=== PATIENT | female | born 1965 | race Caucasian/White ===

== ENCOUNTER → 2016-10-22 | Outpatient (CLI) | payer OTHER ==
--- NOTE | 2016-10-25 15:23 | BD ---
EXAMINATION TYPE: MG DEXA axial skeleton. DATE OF EXAM: 10/22/2016 3:22 PM COMPARISON: NONE CLINICAL HISTORY: 51-year-old female osteoarthritis, postmenopausal screening Height: 62 Weight: 183.3 FRAX RISK QUESTIONS: Alcohol (3 or more units per day): no Family History (Parent hip fracture): no Glucocorticoids (More than 3mos): no (Ex: prednisone, prednisolone, methylprednisolone, dexamethasone, and hydrocortisone). History of Fracture in Adulthood: no Secondary Osteoporosis: 1. Type 1 Diabetes: no 2. Hyperthyroidism: no 3. Menopause before 45: yes 4. Malnutrition: no 5. Chronic liver disease: no Rheumatoid Arthritis: no Current Tobacco Use: yes RISK FACTORS HISTORY OF: Hip Fracture (Right/Left): no Spine Fracture: no History of Wrist Fracture: no Surgery to Spine/Hip(right/left)/Wrist (right/left): l-spine When: 2007 Family History of Osteoporosis: no Active: no Diet low in dairy products/other sources of calcium: yes Postmenopausal woman: hysterectomy age 36 Take estrogen and/or progesterone medications: not currently How long: took since age 36 just stopped in aug 2016 Lost more than 2 inches in height since high school: yes Frequent falls: no Poor Health: no Adrenal Insufficiency: no MEDICATIONS: norco, losartan, acid reflux, loratadine Additional History: EXAM MEASUREMENTS: Bone mineral densitometry was performed using the Vouchr System. Bone mineral density about the R hip (g/cm2): 0.866 Bone mineral density about the L hip (g/cm2): 0.896 T Score values are as follows: -----R Neck: -1.2 -----L Neck: -1.0 -----R Intertrochanter: -0.8 -----L Intertrochanter: 0.3 Bone mineral density has: baseline here/prior [facility] IMPRESSION: Osteopenia as indicated by T score values in the right hip. There is slightly increased risk for frac ture and therapy can be considered. Rescreen in 2-5 years. NOTE: T-SCORE=SD OF THE YOUNG ADULT MEAN.
--- NOTE | 2016-10-26 08:37 | MM ---
Reason for exam: screening (asymptomatic). Last mammogram was performed 1 year and 1 month ago. History: Patient is postmenopausal. Benign MG stereo VAD BX RT of the right breast, October 14, 2015. Took hormonal contraceptives for 10 years. Physical Findings: A clinical breast exam by your physician is recommended on an annual basis and results should be correlated with mammographic findings. MG Screening Mammo w CAD Bilateral CC and MLO view(s) were taken. Prior study comparison: September 26, 2015, right breast MG 3d work up w/cad RT. The breast tissue is heterogeneously dense. This may lower the sensitivity of mammography. Previous mammotome biopsy within the right breast. No significant changes when compared with prior studies. ASSESSMENT: Benign, BI-RAD 2 RECOMMENDATION: Routine screening mammogram of both breasts in 1 year.
== END | disposition home or self-care (01) ==
LOC: RADMAMWWP 14:57
PROVIDERS: ATTEND Family Medicine
DX: Z12.31 Encounter for screening mammogram for malignant neoplasm of breast (principal); M85.88 Other specified disorders of bone density and structure, other site; M19.90 Unspecified osteoarthritis, unspecified site
CPT/HCPCS: 77080; G0202

== ENCOUNTER → 2017-11-01 | Outpatient (CLI) | payer MEDICARE, OTHER ==
--- NOTE | 2017-11-02 11:52 | MM ---
Reason for exam: screening (asymptomatic). Last mammogram was performed 1 year ago. History: Patient is postmenopausal. Benign MG stereo VAD BX RT of the right breast, October 14, 2015. Took hormonal contraceptives for 10 years. Physical Findings: A clinical breast exam by your physician is recommended on an annual basis and results should be correlated with mammographic findings. MG 3D Screening Mammo W/Cad Bilateral CC and MLO view(s) were taken. Prior study comparison: October 22, 2016, bilateral MG screening mammo w CAD. September 26, 2015, right breast MG 3d work up w/cad RT. The breast tissue is heterogeneously dense. This may lower the sensitivity of mammography. No suspicious abnormality. Right biopsy marker noted. No significant changes when compared with prior studies. ASSESSMENT: Negative, BI-RAD 1 RECOMMENDATION: Routine screening mammogram of both breasts in 1 year.
== END | disposition home or self-care (01) ==
LOC: RADMAMWWP 06:47
PROVIDERS: ATTEND Family Medicine
DX: Z12.31 Encounter for screening mammogram for malignant neoplasm of breast (principal)
CPT/HCPCS: 77063; 77067

== ENCOUNTER → 2018-04-03 | Outpatient (CLI) | payer MEDICARE, OTHER ==
--- NOTE | 2018-04-03 21:25 | CT ---
EXAMINATION TYPE: CT cervical spine wo con DATE OF EXAM: 04/03/2018 COMPARISON: NONE HISTORY: Neck pain x 6 months with tingling and numbness to right side of neck into shoulder. Cervica l radiculopathy per order. CT DLP: 368 mGycm. Automated Exposure Control for Dose Reduction was Utilized. TECHNIQUE: CT scan of the cervical spine is obtained without contrast, axial images are obtained, sa gittal and coronal reformatted images are also reviewed. FINDINGS: Cervical spine is visualized in its entirety from C1 through upper thoracic levels, demonst rates reversal of normal cervical curvature without evidence of acute fracture or dislocation. Preve rtebral soft tissue appears within normal limits. The C1-C2 articulation is within normal limits on the coronal images. Vertebral body heights are maintained. There is mild disc space narrowing with mild anterior spurring C4-C5 level. There is mild to moderate disc space narrowing and anterior spurring at C5-C6 and C6-C7 levels. Posterior spur disc complexes effacing the anterior thecal sac at these levels on sagittal i mages. Nonspecific sclerotic focus C7 vertebra favors benign bone island coronal image 17. Review of axial images at C2-C3 level is felt to appear within normal limits. Axial images at C3-C4 level show right-sided uncovertebral facet degenerative change and marginal spu rring causing asymmetric moderate right-sided neural foraminal narrowing. Axial images at C4-C5 level show posterior spur disc complex effacing the anterior thecal sac and cau sing asymmetric moderate left-sided neural foraminal narrowing. Axial images at C5-C6 level show posterior spur disc complex effacing anterior thecal sac and causing mild bilateral neural foraminal narrowing. Axial images at C6-C7 level a broad-based posterior disc protrusion effacing anterior thecal sac, alfred ateral neural foramina are felt patent at this level. Axial images at C7-T1 level are felt within normal limits. Thyroid gland is heterogeneous and enlarged in size, underlying goiter is suspected. Correlate clinic ally. There is moderate emphysematous change visualized lung apices. IMPRESSION: Reversal of normal cervical curvature with multilevel degenerative changes most prominent in the mid to lower cervical levels as detailed above. Underlying moderate emphysematous change and thyroid goiter suspected. Correlate clinically.
== END ==
LOC: RADCTMAIN 17:45
PROVIDERS: ATTEND Family Medicine
DX: M99.71 Connective tissue and disc stenosis of intervertebral foramina of cervical region (principal); M50.123 Cervical disc disorder at C6-C7 level with radiculopathy; M47.22 Other spondylosis with radiculopathy, cervical region
CPT/HCPCS: 72125

== ENCOUNTER → 2018-11-03 | Outpatient (CLI) | payer MEDICARE, OTHER ==
--- NOTE | 2018-11-07 13:11 | MM ---
Reason for exam: screening (asymptomatic). Last mammogram was performed 1 year ago. History: Patient is postmenopausal. Benign MG stereo VAD BX RT of the right breast, October 14, 2015. Took hormonal contraceptives for 10 years. Physical Findings: A clinical breast exam by your physician is recommended on an annual basis and results should be correlated with mammographic findings. MG Screening Mammo w CAD Bilateral CC and MLO view(s) were taken. Prior study comparison: November 01, 2017, bilateral MG 3d screening mammo w/cad. October 22, 2016, bilateral MG screening mammo w CAD. The breast tissue is heterogeneously dense. This may lower the sensitivity of mammography. Previous mammotome biopsy in the right breast. No significant changes when compared with prior studies. ASSESSMENT: Negative, BI-RAD 1 RECOMMENDATION: Routine screening mammogram of both breasts in 1 year.
== END | disposition home or self-care (01) ==
LOC: RADMAMWWP 14:30
PROVIDERS: ATTEND Family Medicine
DX: Z12.31 Encounter for screening mammogram for malignant neoplasm of breast (principal)
CPT/HCPCS: 77067

== ENCOUNTER → 2019-08-29 | Outpatient (CLI) | payer MEDICARE, OTHER ==
--- NOTE | 2019-08-29 09:52 | XR ---
Bilateral knees HISTORY: Bilateral knee pain 6 views of each knee submitted There is marginal spurring, remodeling in the medial compartments with subchondral sclerosis and join t space loss. Marginal spurring joint space loss also present to lesser extent at the patellofemoral joint and lateral compartments. No evident joint effusion. IMPRESSION: Osteoarthritis.
== END | disposition home or self-care (01) ==
LOC: RADXRMAIN 08:27
PROVIDERS: ATTEND Family Medicine
DX: M17.0 Bilateral primary osteoarthritis of knee (principal)

== ENCOUNTER → 2020-01-24 | Outpatient (CLI) | payer MEDICARE, OTHER ==
--- NOTE | 2020-01-28 08:02 | MM ---
Reason for exam: screening (asymptomatic). Last mammogram was performed 1 year and 3 months ago. History: Patient is postmenopausal. Benign MG stereo VAD BX RT of the right breast, October 14, 2015. Took hormonal contraceptives for 10 years. Taking estrogen for 18 years. Physical Findings: A clinical breast exam by your physician is recommended on an annual basis and results should be correlated with mammographic findings. MG 3D Screening Mammo W/Cad Bilateral CC and MLO view(s) were taken. Prior study comparison: November 03, 2018, bilateral MG screening mammo w CAD. November 01, 2017, bilateral MG 3d screening mammo w/cad. The breast tissue is heterogeneously dense. This may lower the sensitivity of mammography. Previous mammotome biopsy in the right breast. Focal asymmetry left upper outer quadant anterior, changed from priors. No significant new findings when compared with previous films. These results were verbally communicated with the patient and result sheet given to the patient on 01/24/20. ASSESSMENT: Incomplete: need additional imaging evaluation, BI-RAD 0 RECOMMENDATION: Special view mammogram of the left breast. If lesion persists on supplemental views, image directed ultrasound is recommended. [facility] will attempt to contact patient to return for supplemental views and ultrasound if indicated.
== END | disposition home or self-care (01) ==
LOC: RADMAMWWP 13:54
PROVIDERS: ATTEND Family Medicine
DX: Z12.31 Encounter for screening mammogram for malignant neoplasm of breast (principal)
CPT/HCPCS: 77063; 77067

== ENCOUNTER → 2020-11-18 | Outpatient (CLI) | payer MEDICARE, OTHER ==
--- NOTE | 2020-11-18 11:20 | XR ---
EXAMINATION TYPE: XR chest 2V DATE OF EXAM: 11/18/2020 COMPARISON: Chest x-ray 03/25/2010 HISTORY: Shortness of breath TECHNIQUE: Frontal and lateral views of the chest are obtained. FINDINGS: Patchy densities present within the bilateral lungs left greater than right. No evident pn eumothorax or pleural effusion. Cardiac mediastinal silhouette is within normal limits. Bone minerali zation is stable. There is a spinal curvature. IMPRESSION: Findings likely represent sequela due to patient's history of Covid pneumonia
== END | disposition home or self-care (01) ==
LOC: RADXRMAIN 07:58
PROVIDERS: ATTEND Family Medicine
DX: R06.02 Shortness of breath (principal); Z86.16 Personal history of COVID-19
CPT/HCPCS: 71046

== ENCOUNTER → 2021-09-16 | Outpatient (CLI) | payer MEDICARE, OTHER ==
[2021-09-16 10:47] LABS: HCT 41.5 % (34.0-46.0); HGB 13.5 gm/dL (11.4-16.0); MCH 32.1 pg (25.0-35.0); MCHC 32.7 g/dL (31.0-37.0); MCV 98.1 fL (80.0-100.0); Mean Platelet Volume 7.7; Platelet Count 395 k/uL (150-450); RBC 4.23 m/uL (3.80-5.40); RDW 13.2 % (11.5-15.5); WBC 12.7 k/uL (3.8-10.6)
[2021-09-16 11:07] LABS: African American GFR (CKD) 75 (>60 ml/min/1.73 sqM); Anion Gap 6 mmol/L; Blood Urea Nitrogen 22 mg/dL (7-17); Calcium 9.7 mg/dL (8.4-10.2); Carbon Dioxide 29 mmol/L (22-30); Chloride 102 mmol/L (98-107); Glucose 87 mg/dL (74-99); Non-African American GFR(CKD) 65 (>60 ml/min/1.73 sqM); Potassium 4.1 mmol/L (3.5-5.1); Sodium 137 mmol/L (137-145)
[2021-09-16 11:23] LABS: T4, Free (Free Thyroxine) 1.04 ng/dL (0.78-2.19)
[2021-09-16 11:31] LABS: Appearance,Urine Cloudy (Clear); Bilirubin,Urine Negative (Negative); Blood,Urine Negative (Negative); Color,Urine Yellow; Glucose,Urine (UA) Negative (Negative); Ketones,Urine Negative (Negative); Leukocyte Esterase,Urine Negative (Negative); Mucus,Urine Rare /hpf; Nitrite,Urine Negative (Negative); PH, Urine 5.5 (5.0-8.0); Protein,Urine Negative (Negative); RBC,Urine 1 /hpf (0-5); Specific Gravity,Urine 1.018 (1.001-1.035); Squamous Epithelial Cell,Urine 7 /hpf (0-4); Urobilinogen,Urine <2.0 mg/dL (<2.0); WBC,Urine 1 /hpf (0-5)
--- NOTE | 2021-09-16 12:21 | CT ---
EXAMINATION TYPE: CT pelvis w con DATE OF EXAM: 09/16/2021 INDICATION: post menopausal bleeding CT DLP: 1532.6 mGy.cm Automated Exposure Control for Dose Reduction was Utilized. TECHNIQUE AND CONTRAST: CT scan of the lower abdomen and pelvis is performed with IV Contrast, patient injected with 100 mL o f Isovue 300. COMPARISON: No previous CT scan is available for comparison. FINDINGS: Previous hysterectomy. Multiple adhesions are seen between the vagina vault, adjacent sigmoid colon, both adnexa and urinary bladder. Tiny air bubble is seen within the slightly thickened superior wall of the urinary bladder with tiny tract seen superiorly into the adjacent sigmoid colon. Another possi ble tract is seen between the sigmoid colon and the left side of the vaginal vault. The vaginal vault contains air on the left side. This may suggest a fistula between the urinary bladder and the sigmoid colon, and possibly the vagina l vault. Right ovarian/adnexal cyst measuring up to 5.1 cm without definite septation or gross solid component however further ultrasound assessment is advised. No left adnexal mass. Previous cholecystectomy. Unremarkable visualized portion of the liver, spleen, pancreas, adrenals an d left kidney. 16 mm cyst is seen within the midpole of the right kidney with suspected thin septatio n within. Recommend correlation with ultrasound results. Unremarkable right kidney otherwise. Unremar kable visualized portion of the stomach, duodenum and small bowel. Scattered colonic diverticulosis. Normal appendix. Unremarkable abdominal aorta and IVC. Minimal cristian rial atherosclerotic calcifications. No sizable ascites. Fat-containing umbilical hernia. L4 down to S1 fixation using rods and multiple screws. Degenerative changes of the sacroiliac joints. Grade 1-2 anterolisthesis of L5 over S1 with severely degenerated L5-S1 disc. IMPRESSION: Findings are suggestive of adhesions/fistulous communication between the sigmoid colon, the urinary b ladder and possibly the vagina vault on the left side as described above. Recommend clinical correlat ion, correlation with urinalysis results and surgical consultation. Other incidental findings as desc ribed above.
[2021-09-17 02:18] LABS: Follicle Stimulating Hormone 31.1 mIU/mL; Luteinizing Hormone 37.2 mIU/mL
[2021-09-17 03:00] LABS: Testosterone <2.50 ng/mL (7.00-45.62)
== END | disposition home or self-care (01) ==
LOC: RADCTMAIN 10:06
PROVIDERS: ATTEND Family Medicine
DX: K57.30 Diverticulosis of large intestine without perforation or abscess without bleeding (principal); K42.9 Umbilical hernia without obstruction or gangrene; N95.0 Postmenopausal bleeding
CPT/HCPCS: 84439; 80048; 82626; 83001; 83002; 82672; 84443; 85027; 81001; 84146; 84403; 84144; 83036; 72193; 36415; Q9967

== ENCOUNTER → 2021-12-21 | Outpatient (CLI) | payer MEDICARE, OTHER ==
--- NOTE | 2021-12-21 12:43 | US ---
EXAMINATION TYPE: US thyroid st tissue head/neck DATE OF EXAM: 12/21/2021 COMPARISON: NONE CLINICAL HISTORY: E05.90 THYROTOXICOSIS, UNSP WITHOUT THYROTOXIC CRISIS OR. Abnormal labs GLAND SIZE: Right Lobe: 5.7 x 2.3 x 2.4 cm Overall Parenchyma: heterogenous Left Lobe: 5.9 x 2.1 x 2.4 cm Overall Parenchyma: heterogeneous Isthmus Thickness: 0.9 cm NODULES RIGHT: # of nodules measured on right: 2 1. 0.9 X 0.7 x 0.7 cm, upper lateral, solid or almost completely solid, hypoechoic nodule, which is wider than tall, with smooth margins, without echogenic foci. Prior size: No prior 2. 0.7 X 0.4 x 0.7 cm, mid, mixed cystic and solid, hypoechoic nodule, which is wider than tall, wi th smooth margins, without echogenic foci. Prior size: No prior LEFT: # of nodules measured on left: 1 1. 0.6 X 0.5 x 0.6 cm, upper , solid or almost completely solid, hypoechoic nodule, which is wider than tall, with smooth margins, without echogenic foci. Prior size: No prior ISTHMUS: # of nodules measured in the isthmus: 0 Bilateral neck scanned, no evidence of lymphadenopathy. IMPRESSION: Enlarged, heterogeneous thyroid bilaterally with nonspecific sub-centimeter nodules bilaterally.
[2021-12-21 18:26] LABS: Prolactin 12.7 ng/mL (2.800-29.200); T4, Free (Free Thyroxine) 1.28 ng/dL (0.800-1.800)
[2021-12-22 09:31] LABS: ACTH 8.28 pg/mL (0.00-45.99)
== END | disposition home or self-care (01) ==
LOC: RADUSWWP 10:46
PROVIDERS: ATTEND Internal Medicine Endocrinology, Diabetes & Metabolism
DX: E04.1 Nontoxic single thyroid nodule (principal); R53.83 Other fatigue; E05.90 Thyrotoxicosis, unspecified without thyrotoxic crisis or storm
CPT/HCPCS: 76536; 82024; 82533; 82607; 84146; 84439; 84443; 84445; 84480

== ENCOUNTER → 2021-12-23 | Outpatient (CLI) | payer MEDICARE, OTHER | END | disposition home or self-care (01) | LOC: RADNMMAIN 10:42 | PROVIDERS: ATTEND Internal Medicine Endocrinology, Diabetes & Metabolism | DX: Z53.9 Procedure and treatment not carried out, unspecified reason (principal) ==

== ENCOUNTER → 2022-05-31 | Outpatient (CLI) | payer MEDICARE, OTHER ==
--- NOTE | 2022-06-01 20:11 | MM ---
Reason for Exam: Screening (asymptomatic). Last mammogram was performed 2 year(s) and 4 month(s) ago. Patient History: Menarche at age 9. First Full-Term at age 16. Right ovary removed at age 36. Hysterectomy at age 36. Postmenopausal. Currently using Estrogen, beginning at age 36 for 18 years. Patient used Hormonal Contraceptives for 10 years. 10/14/2015, Benign Core Biopsy on the right side. Risk Values: Diana 5 year model risk: 1.3%. NCI Lifetime model risk: 7.0%. Prior Study Comparison: 04/13/2006 Screening Mammogram, [facility]. 09/23/2015 Bilateral Screening Mammogram, [facility]. 09/26/2015 Right Diagnostic Mammogram, [facility]. 10/22/2016 Bilateral Screening Mammogram, [facility]. 11/01/2017 Bilateral Screening Mammogram, [facility] 11/03/2018 Bilateral Screening Mammogram, [facility]. 01/24/2020 Bilateral Screening Mammogram, [facility]. 02/06/2020 Left Diagnostic Mammogram, [facility]. Tissue Density: The breast tissue is heterogeneously dense. This may lower the sensitivity of mammography. Findings: Analyzed By CAD. Microclip lateral right breast from prior biopsy. Asymmetric density central left MLO view and a middle depth appears more defined but disperses on 3-D images. No significant change from prior exams. Overall Assessment: Benign, BI-RAD 2 Management: Screening Mammogram of both breasts in 1 year. 1. Patient should continue monthly self breast exams. 2. A clinical breast exam by your physician is recommended on an annual basis. 3. This exam should not preclude additional follow-up of suspicious palpable abnormalities. Electronically signed and approved by: Sandy Ha M.D. Radiologist
== END | disposition home or self-care (01) ==
LOC: RADMAMWWP 15:58
PROVIDERS: ATTEND Family Medicine
DX: Z12.31 Encounter for screening mammogram for malignant neoplasm of breast (principal); Z78.0 Asymptomatic menopausal state; Z90.721 Acquired absence of ovaries, unilateral
CPT/HCPCS: 77063; 77067

== ENCOUNTER → 2023-01-26 | Outpatient (CLI) | payer MEDICARE, OTHER ==
[2023-01-26 16:09] LABS: Potassium 4.1 mmol/L (3.5-5.5)
[2023-01-26 16:11] LABS: Basophils # (A) 0.12 X 10*3/uL (0.00-0.10); Eosinophils # (A) 0.58 X 10*3/uL (0.04-0.35); Eosinophils % (A) 4.9 %; HGB 13.8 d/dL (12.0-15.0); Lymphocytes # (A) 3.33 X 10*3/uL (0.90-5.00); Lymphocytes % (A) 28.3 %; MCH 30.9 pg (27.0-32.0); MCHC 32.1 d/dL (32.0-37.0); MCV 96.2 FL (80.0-97.0); Mean Platelet Volume 11.1 FL (9.5-12.2); Monocytes # (A) 0.83 X 10*3/uL (0.20-1.00); Monocytes % (A) 7.1 %; NRBC Per 100 WBC 0 X 10*3/uL (0.00-0.01); Neutrophils # (A) 6.86 X 10*3/uL (1.80-7.70); Neutrophils % (A) 58.4 %; Platelet Count 387 X 10*3/uL (140-440); RBC 4.47 X 10*6/uL (4.10-5.20); RDW 13.2 % (11.5-14.5); WBC 11.75 X 10*3/uL (4.50-10.00)
== END | disposition home or self-care (01) ==
LOC: LABPAT 09:41
PROVIDERS: ATTEND Orthopaedic Surgery Hand Surgery
DX: Z01.812 Encounter for preprocedural laboratory examination (principal); M18.9 Osteoarthritis of first carpometacarpal joint, unspecified; I21.3 ST elevation (STEMI) myocardial infarction of unspecified site; R94.31 Abnormal electrocardiogram [ECG] [EKG]
CPT/HCPCS: 36415; 80051; 85025; 93005

== ENCOUNTER 2023-02-09 08:24 | Day surgery (SDC) | payer MEDICARE, OTHER ==
--- NOTE | 2023-02-08 10:20 | P.HPOR ---
History of Present Illness H&P Date: 02/08/23 Subjective: This is a 57 year old female that presents today for initial evaluation regarding a several year history of worsening bilateral base of thumb pain. She states the left is about equal to the right. She is right-hand dominant. She tried anti-inflammatories and bracing and noticed that the braces actually made her symptoms worse. Anti-inflammatories are no longer helping her symptoms. She denies any injury or inciting event. She denies any numbness or tingling. Physical Examination: LUE: AIN/PIN/Radial/Ulnar/Median motor intact. Radial/Ulnar/Median SILT. 2+/4 Radial/Ulnar pulses palpated. 5/5 APB, 5/5 FDI. Negative Finkelsteins, Positive CMC grind, negative Durkan's compression. RUE: AIN/PIN/Radial/Ulnar/Median motor intact. Radial/Ulnar/Median SILT. 2+/4 Radial/Ulnar pulses palpated. 5/5 APB, 5/5 FDI. Negative Finkelsteins, Positive CMC grind, negative Durkan's compression. Imaging: X-Rays of the left hand 3V reviewed from prior office visit on 11/17/2022 demonstrates severe arthritic changes at the thumb CMC joint. X-Rays of the right hand 3V reviewed from prior office visit on 11/17/2022 demonstrates moderate arthritic changes at the thumb CMC joint. Impression: 1.) Left thumb CMC arthritis 2.) Right thumb CMC arthritis Plan: Diagnosis and treatment options were discussed with the patient. She has progres sively worsening symptoms that are interfering with her daily activities and is no longer responding to anti-inflammatories or bracing and would like to pursue surgical intervention in the form of a left thumb basilar joint arthroplasty. Risks and benefits of surgery including bleeding, infection, damage to surrounding tissue, need for further surgery, residual numbness were discussed and the patient wished to go forward with surgery. The patient was agreeable with this plan. CC: Valentin Oneill DO Orthopedic Hand/Upper Extremity Surgeon Past Medical History Past Medical History: GERD/Reflux, Hypertension, Thyroid Disorder Additional Past Medical History / Comment(s): lower back pain, no current meds for thyroid History of Any Multi-Drug Resistant Organisms: None Reported Past Surgical History: Back Surgery, Bowel Resection, Cholecystectomy, Hysterectomy, Orthopedic Surgery Additional Past Surgical History / Comment(s): ARTHROSCOPIC DAIANA. KNEES, bowel resections with lysis of adehsions at [place] Past Anesthesia/Blood Transfusion Reactions: No Reported Reaction Additional Past Anesthesia/Blood Transfusion Reaction / Comment(s): BP dropped very low post bowel resections Smoking Status: Current every day smoker - Past Family History Father Family Medical History: Diabetes Mellitus Mother Family Medical History: Diabetes Mellitus Medications and Allergies Home Medications Medication Instructions Recorded Confirmed Type Ibuprofen [Motrin] 800 mg PO Q8HR PRN 06/24/15 02/04/23 History Losartan-Hctz 50-12.5 mg [Hyzaar 1 each PO DAILY 06/24/15 02/04/23 History 50-12.5] estradioL [Estradiol] 2 mg PO DAILY 06/24/15 02/04/23 History Cetirizine HCl 10 mg PO HS 02/02/23 02/04/23 History Furosemide [Lasix] 20 mg PO DAILY PRN 02/02/23 02/04/23 History Gabapentin [Neurontin] 300 mg PO TID 02/02/23 02/04/23 History Omeprazole [PriLOSEC] 1 tab PO HS 02/02/23 02/04/23 History Allergies Allergy/AdvReac Type Severity Reaction Status Date / Time No Known Allergies Allergy Verified 02/04/23 08:27 Physical Examination Osteopathic Statement: *. No significant issues noted on an osteopathic structural exam other than those noted in the History and Physical/Consult.
[2023-02-09 08:55] VITALS: TEMP 96.9
[2023-02-09] MEDS ORDERED: ONDANSETRON 4 MG/2 ML VIAL ONE (08:58)
[2023-02-09] MEDS ORDERED: LACTATED RINGERS 1,000 ML IV ONE (09:14)
[2023-02-09] MEDS ORDERED: LIDOCAINE 1% (10MG/ML) FOR IV START INTRADERMA ONE (09:14)
[2023-02-09] MEDS ORDERED: ONDANSETRON 4 MG/2 ML VIAL IVP ONE ×2 (09:19→09:54)
[2023-02-09] MEDS ORDERED: DEXAMETHASONE SOD PHOSPHATE 4 MG/ML 1 ML VIAL IV ONE ×2 (09:20→09:54)
[2023-02-09] MEDS ORDERED: MIDAZOLAM 2 MG/2 ML VIAL IVP ONE (09:25)
[2023-02-09] MEDS ORDERED: fentaNYL (PF) 50 MCG/ML 2 ML AMP ONE (09:50)
[2023-02-09] MEDS ORDERED: PROPOFOL 10 MG/ML 20 ML VIAL IV ONE (09:50)
[2023-02-09] MEDS ORDERED: ROPIVACAINE 5 MG/ML 30 ML VIAL ONE (09:50)
[2023-02-09] MEDS ORDERED: MIDAZOLAM 2 MG/2 ML VIAL ONE (09:50)
[2023-02-09] MEDS ORDERED: KETOROLAC 15 MG/ML 1 ML VIAL ONE (09:50)
[2023-02-09] MEDS ORDERED: HYDROmorphone 0.5 MG/0.5 ML SYRINGE IVP PRN (09:54)
[2023-02-09] MEDS ORDERED: LIDOCAINE 1% (10MG/ML) FOR IV START INTRADERMA PRN (09:54)
[2023-02-09] MEDS ORDERED: LACTATED RINGERS 1,000 ML IV SCH (09:54)
[2023-02-09] MEDS ORDERED: droPERidol 5 MG/2 ML VIAL IVP ONE (09:54)
--- NOTE | 2023-02-09 09:57 | P.ANPRN ---
Procedure Note - Anesthesia - Nerve Block Performed Left Axillary Time Out Performed: Yes (:) Date of Procedure: 02/09/23 Procedure Start Time: Procedure Stop Time: Location of Patient: PreOp Indication: Acute Post-Operative Pain, Requested by Surgeon (DR Posadas) Sedation Type: Sedate with meaningful contact maintained Preparation: Sterile Prep Position: Supine Catheter: None Needle Types: Pajunk Needle Gauge: 21 Ultrasound used to visualize needle placement: Yes Ultrasound used to observe medication spread: Yes Injectate: 0.5% Ropivacaine (see comment for volume) (22cc) Blood Aspirated: No Pain Paresthesia on Injection Noted: No Resistance on Injection: Normal Image Stored and Saved: Yes Events: Uneventful and Well Tolerated
--- NOTE | 2023-02-09 11:17 | P.OP ---
Date of Procedure: 02/09/23 Preoperative Diagnosis: Left thumb CMC arthritis Postoperative Diagnosis: Left thumb CMC arthritis Procedure(s) Performed: Left thumb basilar joint arthroplasty Implants: Arthrex 3.5mm Swivel Lock suture anchor x2 Anesthesia: regional Surgeon: Kel Posadas Estimated Blood Loss (ml): 5 Pathology: none sent Condition: stable Disposition: PACU Description of Procedure: This is a 57 year old female who presents today for a left thumb CMC basal joint arthroplasty after having failed conservative treatment for severe thumb CMC arthritis. Risks and benefits of surgery were discussed with the patient including bleeding, damage to surrounding tissue, infection, need for further surgery as well as risks of anesthesia including pulmonary embolism and even and the patient wished to proceed with surgical intervention. The patients was seen in the pre-operative area by myself. Consent and H&P were completed and updated. The correct extremity was marked in the pre-operative area by myself and all other questions were answered. Patient received a upper extremity nerve block by the department of anesthesia. He then was brought to the operating room by the department of anesthesia. They remained on the portable stretcher and a rolling hand table was brought to the side of the operative extremity. The patient was then drifted off to sleep by the department of anesthesia. A nonsterile tourniquet was then applied to the operative extremity and the left upper extremity was then prepped and draped in normal sterile fashion. Pre-operative time out was performed indicating the correct patient, procedure and laterality. All in the room agreed. Pre-operative antibiotics were given prior to skin incision. The operative extremity was the exsanguinated with an esmarch bandage and the tourniquet was inflated to 250mmHg. Longitudinal incision was made over the left thumb CMC joint with a 15 blade scalpel. Blunt dissection was taken down to subcutaneous tissues with littler scissors taking care to preserve the branches of the superficial radial nerve. Dorsal radial artery was identified proximally in the incision and protected throughout the procedure. Scalpel was then made to incise the thumb CMC joint creating full thickness flaps off of the proximal metacarpal base and trapezium, this plane was further developed with a periosteal elevator. Elevator was then utilized to identify the thumb CMC joint and scaphotrapezial joint. McGlamory elevator was then used to excise the trapezium whole. Guidewire was then introduced down to the laser line at the base of the first metacarpal through the same incision and was over drilled. Another guidewire was then inserted at the radial base of the first metacarpal near the Insertion of APL and was then over drilled with normal drill guide. A 3.5mm Arthrex SwiveLock anchor was then inserted into the base of the first metacarpal. While holding the thumb in slight traction and full adduction, another 3.5mm Arthrex SwiveLock anchor was inserted into the base of the second metacarpal and the two strands of fibertape were centered across the first metacarpal base to create a sling around the base suspending the thumb metacarpal, good fabricio purchase was appreciated. The thumb was successfully suspended and full ROM was achieved passively. Suture ends were cut and skin was closed with several interrupted 4-0 Monocryl sutures followed by a running 4-0 Monocryl stitch. Sterile dressing consisting of mastisol and steri strips followed by 4x4s cast padding, and a thumb spica plaster splint was applied. Tourniquet was let down and the hand had brisk cap refill and normal perfusion immediately. The patient was then woken by the department of anesthesia and transferred to PACU in stable condition. Kel Posadas D.O. Orthopedic Hand/Upper Extremity Surgeon
[2023-02-09 11:19] VITALS: BP 95/60; PULSE 67; RESP 16
== END 2023-02-09 11:57 | disposition home or self-care (01) ==
LOC: OR 08:24
PROVIDERS: ATTEND Orthopaedic Surgery Hand Surgery
DX: M18.12 Unilateral primary osteoarthritis of first carpometacarpal joint, left hand (principal); G89.18 Other acute postprocedural pain; K21.9 Gastro-esophageal reflux disease without esophagitis; I10 Essential (primary) hypertension; E07.9 Disorder of thyroid, unspecified; F17.200 Nicotine dependence, unspecified, uncomplicated; Z90.49 Acquired absence of other specified parts of digestive tract; Z90.710 Acquired absence of both cervix and uterus; Z83.3 Family history of diabetes mellitus; Z79.899 Other long term (current) drug therapy
CPT/HCPCS: 64415; 25447; C1713; J2250; J1100; J0690; J2405; J3010; J2795; J1885; J2704

== ENCOUNTER → 2023-06-24 | Outpatient (CLI) | payer MEDICARE, OTHER ==
--- NOTE | 2023-06-27 16:19 | MM ---
Reason for Exam: Screening (asymptomatic). Last mammogram was performed 1 year(s) and 1 month(s) ago. Patient History: Menarche at age 9. First Full-Term at age 16. Right ovary removed at age 36. Hysterectomy at age 36. Postmenopausal. Currently using Estrogen, beginning at age 36 for 18 years. Patient used Hormonal Contraceptives for 10 years. 10/14/2015, Benign Core Biopsy on the right side. Risk Values: Diana 5 year model risk: 1.3%. NCI Lifetime model risk: 6.9%. Prior Study Comparison: 01/24/2020 Bilateral Screening Mammogram, [facility]. 02/06/2020 Left Diagnostic Mammogram, [facility]. 05/31/2022 Bilateral MG 3D screening mammo w/cad, [facility]. Tissue Density: The breast tissue is heterogeneously dense. This may lower the sensitivity of mammography. Findings: Analyzed By CAD. Pattern appears symmetrical and stable No suspicious groups of microcalcifications, spiculated or lobular masses, architectural distortion or other secondary signs of malignancy are mammographically apparent. Overall Assessment: Benign, BI-RAD 2 Management: Screening Mammogram of both breasts in 1 year. A negative mammogram report should not preclude additional follow up of suspicious palpable abnormalities. Patient should continue monthly self breast exam. A clinical breast exam by your physician is recommended on an annual basis and results should be correlated with mammographic findings. Electronically signed and approved by: Charles Burden D.O. Radiologis
== END | disposition home or self-care (01) ==
LOC: RADMAMWWP 13:22
PROVIDERS: ATTEND Family Medicine
DX: Z12.31 Encounter for screening mammogram for malignant neoplasm of breast (principal); Z78.0 Asymptomatic menopausal state
CPT/HCPCS: 77063; 77067

== ENCOUNTER → 2023-08-24 | Outpatient (CLI) | payer MEDICARE, OTHER ==
--- NOTE | 2023-08-24 21:09 | BD ---
EXAMINATION TYPE: Axial Bone Density DATE OF EXAM: 08/24/2023 CLINICAL HISTORY: 58 years old Female. ICD-10 CODE: M81.0 AGE-RELATED OSTEOPOROSIS W/O CURRENT PATHO LO Height: 62 Weight: 208.0 FRAX RISK QUESTIONS: Alcohol (3 or more units per day): no Family History (Parent hip fracture): no Glucocorticoids (More than 3mos): not currently History of Fracture in Adulthood: no Secondary Osteoporosis: 1. Type 1 Diabetes: no 2. Hyperthyroidism: no 3. Menopause before 45: yes 4. Malnutrition: no 5. Chronic liver disease: no Rheumatoid Arthritis: no Current Tobacco Use: yes RISK FACTORS HISTORY OF: Hip Fracture (Right/Left): no Spine Fracture: no History of Wrist Fracture: no Surgery to Spine/Hip(right/left)/Wrist (right/left): L3-L4, L4-L5 When: 2007 MEDICATIONS: Thyroid Medications: no Osteoporosis Medications: no EXAM MEASUREMENTS: Bone mineral densitometry was performed using the [employer] System. Bone mineral density about the R hip (g/cm2): 0.963 Bone mineral density about the L hip (g/cm2): 1.074 T Score values are as follows: -----R Neck: -1.2 -----L Neck: -1.2 -----R Total: -0.4 -----L Total: 0.5 Z Score values are as follows: -----R Neck: -0.6 -----L Neck: -0.6 -----R Total: -0.1 -----L Total: 0.8 Bone mineral density has: increased 2.0 % since study of: 10/22/2016 Bone mineral density about the L Wrist (g/cm2): 0.732 T Score values are as follows: -----Dist. R+U: 1.6 -----Prox. R+U: 0.7 -----Radius total: 1.0 Z Score values are as follows: -----Dist. R+U: 2.5 -----Prox. R+U: 1.7 -----Radius total: 1.9 Baseline for Wrist FRAX%s: The graph provided illustrates a 8.1% chance for a major osteoporotic fx and a 1.1% chance fo r the hips probability for fx in 10 years time. IMPRESSION: Osteopenia (T Score between -2.5 and -1). There is slightly increased risk of fracture and the patient may be considered for treatment. Re-Screen 2-5 years. NOTE: T-SCORE=SD OF THE YOUNG ADULT MEAN.
== END | disposition home or self-care (01) ==
LOC: RADBDWWP 11:19
PROVIDERS: ATTEND Family Medicine
DX: M85.89 Other specified disorders of bone density and structure, multiple sites (principal); M81.0 Age-related osteoporosis without current pathological fracture; Z78.0 Asymptomatic menopausal state
CPT/HCPCS: 77080

== ENCOUNTER → 2024-06-29 | Outpatient (CLI) | payer MEDICARE, OTHER | END | disposition home or self-care (01) | LOC: RADMAMWWP 06:59 | PROVIDERS: ATTEND Family Medicine | DX: Z53.9 Procedure and treatment not carried out, unspecified reason (principal) ==

== ENCOUNTER → 2024-10-13 | Outpatient (CLI) | payer MEDICARE, OTHER ==
[2024-10-13 13:19] LABS: Basophils # (A) 0.14 X 10*3/uL (0.00-0.10); Basophils % (A) 1.2 %; Eosinophils # (A) 0.72 X 10*3/uL (0.04-0.35); Eosinophils % (A) 6.1 %; HGB 14.2 g/dL (12.0-15.0); Lymphocytes # (A) 3.38 X 10*3/uL (0.90-5.00); Lymphocytes % (A) 28.7 %; MCH 31.1 pg (27.0-32.0); MCHC 32.3 g/dL (32.0-37.0); MCV 96.5 FL (80.0-97.0); Mean Platelet Volume 10.9 FL (9.5-12.2); Monocytes # (A) 0.96 X 10*3/uL (0.20-1.00); Monocytes % (A) 8.1 %; NRBC Per 100 WBC 0 X 10*3/uL (0.00-0.01); Neutrophils # (A) 6.54 X 10*3/uL (1.80-7.70); Neutrophils % (A) 55.6 %; Platelet Count 355 X 10*3/uL (140-440); RBC 4.56 X 10*6/uL (4.10-5.20); RDW 13.6 % (11.5-14.5); WBC 11.78 X 10*3/uL (4.50-10.00)
[2024-10-13 13:51] LABS: ALT 9 U/L (8-44); AST 13 U/L (13-35)
[2024-10-13 14:13] LABS: Hepatitis B Surface Antigen Nonreactive (Nonreactive); Hepatitis C IgG Antibody Nonreactive (Nonreactive)
== END | disposition home or self-care (01) ==
LOC: LABWHC1 08:07
PROVIDERS: ATTEND Dermatology MOHS-Micrographic Surgery
DX: L40.0 Psoriasis vulgaris (principal)
CPT/HCPCS: 36415; 82565; 84450; 84460; 85025; 86480; 86704; 86706; 86803; 87340

== ENCOUNTER → 2025-01-28 | Outpatient (CLI) | payer MEDICARE, OTHER ==
[2025-01-28 15:33] LABS: Basophils # (A) 0.14 X 10*3/uL (0.00-0.10); Basophils % (A) 1.2 %; Eosinophils # (A) 0.59 X 10*3/uL (0.04-0.35); Eosinophils % (A) 5.1 %; HCT 44.7 % (37.2-46.3); HGB 14.7 g/dL (12.0-15.0); Immature Grans, Automated 0.40 %; Lymphocytes # (A) 3.05 X 10*3/uL (0.90-5.00); Lymphocytes % (A) 26.4 %; MCH 31.5 pg (27.0-32.0); MCHC 32.9 g/dL (32.0-37.0); MCV 95.7 FL (80.0-97.0); Monocytes # (A) 0.80 X 10*3/uL (0.20-1.00); Monocytes % (A) 6.9 %; NRBC Per 100 WBC 0 X 10*3/uL (0.00-0.01); Neutrophils # (A) 6.91 X 10*3/uL (1.80-7.70); Neutrophils % (A) 60.0 %; Platelet Count 360 X 10*3/uL (140-440); RBC 4.67 X 10*6/uL (4.10-5.20); RDW 13.3 % (11.5-14.5); WBC 11.54 X 10*3/uL (4.50-10.00)
[2025-01-28 16:06] LABS: ALT 8 U/L (8-44); AST 14 U/L (13-35); Albumin 4.2 g/dL (3.8-4.9); Albumin/Globulin Ratio 1.40 Ratio (1.60-3.17); Alkaline Phosphatase 84 U/L (41-126); Anion Gap 14.00 mmol/L (4.00-12.00); BUN/Creat Ratio 24.00 Ratio (12.00-20.00); Blood Urea Nitrogen 24.0 mg/dL (9.0-27.0); Calcium 9.5 mg/dL (8.7-10.3); Carbon Dioxide 23.0 mmol/L (21.6-31.8); Chloride 102 mmol/L (96-109); Cholesterol 202.00 mg/dL (0.00-200.00); Globulin 3.0 g/dL (1.6-3.3); Glucose 97 mg/dL (70-110); HDL Cholesterol 60.60 mg/dL (40.00-60.00); LDL Cholesterol,Calculated 118.2 mg/dL (0.0-131.0); Potassium 3.4 mmol/L (3.5-5.5); Sodium 139 mmol/L (135-145); T4, Free (Free Thyroxine) 1.18 ng/dL (0.80-1.80); Total Protein 7.2 g/dL (6.2-8.2); Triglycerides 116.00 mg/dL (0.00-149.00); VLDL Calculation 23.20 mg/dL (5.00-40.00); Vitamin B12 220.0 pg/mL (200.0-944.0)
== END | disposition home or self-care (01) ==
LOC: LABWHC1 08:40
PROVIDERS: ATTEND Family Medicine
DX: G89.4 Chronic pain syndrome (principal); N32.1 Vesicointestinal fistula; E66.01 Morbid (severe) obesity due to excess calories; M43.16 Spondylolisthesis, lumbar region; E55.9 Vitamin D deficiency, unspecified; E53.8 Deficiency of other specified B group vitamins; R73.9 Hyperglycemia, unspecified
CPT/HCPCS: 36415; 80053; 80061; 82306; 82607; 83036; 84439; 84443; 85025